=== PATIENT | female | born 2000 | race Caucasian/White ===

== ENCOUNTER 2019-10-19 13:15 | Outpatient (CLI) | payer OTHER ==
[2019-10-19] MEDS ORDERED: FOLIC ACID20 MG PO (13:31)
[2019-10-19] MEDS ORDERED: PRENATAL CAPLE1 EAC1 PO (13:31)
[2019-10-19] MEDS ORDERED: VITAMIN C1000 MG PO (13:32)
== END 2019-10-19 16:00 | disposition home or self-care (01) ==
LOC: OBS/DEL 13:15
DX: O26.893 Other specified pregnancy related conditions, third trimester (principal); G44.209 Tension-type headache, unspecified, not intractable

== ENCOUNTER 2019-11-08 08:30 | Inpatient (IN) | payer OTHER ==
[~2019-11-08] VITALS: Ht 162.6 cm; Wt 82.6 kg
[~2019-11-08 08:30] MED LIST: FOLIC ACID20 MG PO; PRENATAL CAPLE1 EAC1 PO; VITAMIN C1000 MG PO
== END 2019-11-11 15:03 | disposition home or self-care (01) | DRG 788 ==
LOC: LDR 08:30 → OB/GYN 17:29
PROVIDERS: ADMIT Specialist
PROC: 3E0P7VZ Introduction of Hormone into Female Reproductive, Via Natural or Artificial Opening (ICD-10-PCS; 2019-11-08)
PROC: 3E033VJ Introduction of Other Hormone into Peripheral Vein, Percutaneous Approach (ICD-10-PCS; 2019-11-08)
PROC: 4A1HXCZ Monitoring of Products of Conception, Cardiac Rate, External Approach (ICD-10-PCS; 2019-11-08)
PROC: 10D00Z1 Extraction of Products of Conception, Low, Open Approach (ICD-10-PCS; principal; 2019-11-08 17:00)
DX: O61.0 Failed medical induction of labor (principal); Z3A.40 40 weeks gestation of pregnancy; Z37.0 Single live birth

== ENCOUNTER 2023-01-05 12:12 | Emergency (ER) | payer OTHER ==
[~2023-01-05] VITALS: Ht 160 cm; Wt 61.2 kg
== END 2023-01-05 16:08 | disposition home or self-care (01) ==
LOC: ER 12:12
DX: J45.909 Unspecified asthma, uncomplicated (principal)

== ENCOUNTER → 2025-05-28 | Emergency (ER) | payer OTHER ==
[~2025-05-28] VITALS: Ht 162.6 cm; Wt 64.9 kg
[~2025-05-28] MED LIST changes: +CEFTRIAXONE SODIUM 1,000 MG VIAL IM ONE; +CEFTRIAXONE SODIUM 1,000 MG VIAL ONE; +DUI500 PO; +KETOROLAC TROMETHAMINE 30 MG VIAL IM ONE; +KETOROLAC TROMETHAMINE 30 MG VIAL ONE; +LIDOCAINE HCL 1% 10ML VIAL ONE; +LIDOCAINE HCL 1% 10ML VIAL PERCUT ONE
== END | disposition home or self-care (01) ==
LOC: ER 15:10
DX: L03.031 Cellulitis of right toe (principal)